=== PATIENT | female | born 1985 | race Two or more races ===

== ENCOUNTER 2023-11-02 04:23 | Day surgery (SDC) | payer OTHER ==
[2023-10-28 14:52] VITALS: BMI 27.1
[2023-11-02] MEDS ORDERED: LIDOCAINE 1%/EPI 1:100000 (20 ML MULTI DOSE VIAL) ONE (07:17)
[2023-11-02] MEDS ORDERED: BACITRACIN ZINC 15 GM TUBE TOPICAL OINTMENT ONE ×2 (07:17→10:27)
[2023-11-02] MEDS ORDERED: BUPIVACAINE HCL/PF 0.5% (5MG/ML) 10 ML VIAL ONE (07:17)
[2023-11-02] MEDS ORDERED: COCAINE HCL 4% TOPICAL SOLUTION 4 ML BOTTLE TP ONE (07:27)
[2023-11-02] MEDS ORDERED: SUCCINYLCHOLINE CHLORIDE 200 MG/10 ML SYRINGE ONE (07:47)
[2023-11-02] MEDS ORDERED: ROCURONIUM BROMIDE 50 MG/5 ML SYRINGE ONE (07:47)
[2023-11-02] MEDS ORDERED: PROPOFOL 40 ML ONE (07:47)
[2023-11-02] MEDS ORDERED: MIDAZOLAM HCL 2 MG/2 ML SINGLE DOSE VIAL ONE (07:48)
[2023-11-02] MEDS: ceFAZolin SODIUM 1 GM VIAL IVPB ONE (08:25)
[2023-11-02] MEDS: LIDOCAINE 1%/EPI 1:100000 (20 ML MULTI DOSE VIAL) IJ ONE (08:26)
[2023-11-02] MEDS: BACITRACIN ZINC 15 GM TUBE TOPICAL OINTMENT TP ONE (10:29)
[2023-11-02] MEDS ORDERED: oxyCODONE HCL 5 MG TABLET PO PRN (10:52)
[2023-11-02] MEDS ORDERED: ONDANSETRON 4 MG/2 ML VIAL IVPUSH PRN (10:52)
[2023-11-02] MEDS: LACTATED RINGERS SOLUTION 1,000 ML IV SCH (11:30)
[2023-11-02 14:11] VITALS: BP 116/71; PULSE 93; RESP 18; TEMP 97.5
== END 2023-11-02 14:30 | disposition home or self-care (01) ==
LOC: JASU-SURG 04:23
PROVIDERS: ATTEND Otolaryngology
PROC: 09BS4ZZ Excision of Right Frontal Sinus, Percutaneous Endoscopic Approach (ICD-10-PCS; 2023-11-02)
PROC: 09BM8ZZ Excision of Nasal Septum, Via Natural or Artificial Opening Endoscopic (ICD-10-PCS; 2023-11-02)
PROC: 09TL8ZZ Resection of Nasal Turbinate, Via Natural or Artificial Opening Endoscopic (ICD-10-PCS; 2023-11-02)
PROC: 0CBQ0ZZ Excision of Adenoids, Open Approach (ICD-10-PCS; 2023-11-02)
PROC: 09DU4ZZ Extraction of Right Ethmoid Sinus, Percutaneous Endoscopic Approach (ICD-10-PCS; principal; 2023-11-02 08:00)
DX: J32.9 Chronic sinusitis, unspecified (principal); J33.9 Nasal polyp, unspecified
CPT/HCPCS: 81025; 87070; 87102; 87107; 87205; 87210; 88304-TC; 88311-TC; 94760